=== PATIENT | male | born 1970 | race Caucasian/White ===

== ENCOUNTER 2025-02-02 14:55 | Outpatient (CLI) | payer OTHER, SELFPAY ==
--- NOTE | 2025-02-02 | ECG_ITS ---
Test Date: 2025-02-02 15:19:09 Measurements Intervals [place] Rate: 53 P: 54 ND: 186 QRS: 70 QRSD: 89 T: 55 QT: 419 QTc: 395 Interpretive Statements SINUS BRADYCARDIA VOLTAGE CRITERIA FOR LVH MINIMAL Q WAVES- INF/LAT LEADS ST ELEVATION IN ANTEROLAT/INF LEADS- PROBABLY EARLY REPOLARIZATION BASELINE ARTIFACT- AVL, AVF, V1-V3 BORDERLINE ECG No previous ECG available for comparison Electronically Signed On 02-02-2025 15:53:09 CDT by Elvis Diallo D.O.
--- OUTSIDE RECORDS SUMMARY | 2025-02-02 15:02 | XMS_ITS | Clinical Summary ---
Author Organization [facility] [place] [facility] [facility] Address [address] [place] [address] Care Team Providers Care Car Builder Name Role Phone Marissa Palomino Primary Care Provider +1- [phone] Allergies No known active allergies Medications No known medications Active Problems Problem Noted Date Diagnosed Date BMI 25.0-25.9,adult 11/18/2020 Assessment & Plan (11/18/2020 3:13 PM CDT): Weight/BMI is in healthy range. Continue healthy lifestyle to maintain. Frequent urination 11/18/2020 Assessment & Plan (11/18/2020 4:05 PM CDT): We reviewed poc urinalysis in office He was advised increased fluids, f/u in 1w if not improving and report to er in interim if unable to urinate Will send urine for culture Patient reminded that with this antibiotic that leg pain and inflammation may occur. They were reminded that in the event of these symptoms to stop taking the antibiotic and contact the office. Microscopic hematuria 11/18/2020 Assessment & Plan (11/18/2020 4:05 PM CDT): We reviewed poc urinalysis in office He was advised increased fluids, f/u in 1w if not improving and report to er in interim if unable to urinate Will send urine for culture Patient reminded that with this antibiotic that leg pain and inflammation may occur. They were reminded that in the event of these symptoms to stop taking the antibiotic and contact the office. Family history of colon cancer 11/18/2020 Assessment & Plan (11/18/2020 4:04 PM CDT): Will refer for colon cancer screening Pharyngitis 07/22/2020 Assessment & Plan (07/22/2020 4:07 PM NURSE PRN): Patient declines the advised covid 19 test, reports he is in quarantine at a minimum until next week per the health dept. He will report to us if symptoms not resolving over the next week, sooner if worsening. Immunizations Immunization Administration Dates Next Due Influenza, Trivalent, IM (MDV) 05/23/2018 Influenza, Unspecified 05/23/2020(Deferred: [place] ent Refused) Tdap 03/23/2016 Family History Medical History Relation Name Comments No Known Problems Father No Known Problems Mother Relation Name Status Comments Father Alive Mother Alive Social History Tobacco Use Types Packs/Day Years Used Date Smoking Tobacco: Never Smokeless Tobacco: Never Alcohol Use Standard Drinks/Week Comments Yes 0 (1 standard drink = 0.6 oz pur e alcohol) PHQ-2 Answer Date Recorded PHQ-2 Total Score (If total score is 3 or more points, staff should administer the PHQ-9) 0 11/18/2020 Sex and Gender Information Value Date Recorded Sex Assigned at Not on file Legal Sex Male 8:29 AM NURSE PRN Gender Identity Not on file Sexual Orientation Not on file Obstetrics History Last Filed Vital Signs Vital Sign Reading Time Taken Comments Blood Pressure 120/80 11/18/2020 3:12 PM CDT Pulse 76 11/18/2020 3:12 PM CDT Temperature 36.6 C (97.8 F) 11/18/2020 3:12 PM CDT Respiratory Rate - - Oxygen Saturation 98% 11/18/2020 3:12 PM CDT Inhaled Oxygen Concentration - - Weight 74.8 kg (165 lb) 11/18/2020 3:12 PM CDT Height 172.7 cm (5' 8) 11/18/2020 3:12 PM CDT Body Mass Index 25.09 11/18/2020 3:12 PM CDT Plan of Treatment Not on file Insurance [facility] [employer] Care Teams Car Builder Relationship Specialty Start Date End Date Marissa Palomino PA PCP - General Hardwood Floor Layer 11/18/20
--- OUTSIDE RECORDS SUMMARY | 2025-02-02 15:02 | XMS_ITS | Encounter Summary ---
Author Organization [facility] Care Team Providers Care Lining Closer Name Role Phone Dennis Paula MD Primary Care Provider Marissa Palomino Primary Care Provider +1- [phone] Encounter Details Date Type Department Care Team (Latest Contact Info) Description 10/19/2014 Orders Only [facility] ProviderDarrion MD [address] [place] [id number] Social History Tobacco Use Types Packs/Day Years Used Date Smoking Tobacco: Never Assessed Alcohol Use Standard Drinks/Week Comments Yes 0 (1 standard drink = 0.6 oz pur e alcohol) Sex and Gender Information Value Date Recorded Sex Assigned at Not on file Legal Sex Male 8:29 AM RISK ADJUSTMENT SPECIALIST Gender Identity Not on file Sexual Orientation Not on file documented as of this encounter Plan of Treatment Not on file documented as of this encounter Procedures Procedure Name Priority Date/Time Associated Diagnosis Comments COLONOSCOPY - SCAN 06/28/2018 12 :00 AM RISK ADJUSTMENT SPECIALIST documented in this encounter Results * COLONOSCOPY - SCAN (06/28/2018 12:00 AM RISK ADJUSTMENT SPECIALIST) Narrative 06/28/2018 12:00 AM RISK ADJUSTMENT SPECIALIST Ordered by an unspecified provider. Historical Provider Final Res ult documented in this encounter Visit Diagnoses Not on filedocumented in this encounter Care Teams Lining Closer Relationship Specialty Start Date End Date Dennis Paula MD PCP - General 07/07/10 07/21/20 Marissa Palomino PA PCP - General General Manager In Training 11/18/20 documented as of this encounter
--- OUTSIDE RECORDS SUMMARY | 2025-02-02 15:02 | XMS_ITS | Referral Summary ---
Author Organization [facility] [place] [address] [facility] Address [address] [place] [address] Care Team Providers Care Product Safety Technician Name Role Phone Marissa Palomino Primary Care Provider +1- [phone] Allergies No known active allergies Medications No [...] 07/22/2020 Assessment & Plan (07/22/2020 4:07 PM SERVICE PARTS DRIVER): Patient declines the advised covid 19 test, reports he is in quarantine at a minimum until next week per the health dept. He will report to us if symptoms not resolving over the next week, sooner if worsening. Immunizations Immunization Administration Dates Next Due Influenza, Trivalent, IM (MDV) 05/23/2018 Influenza, Unspecified 05/23/2020(Deferred: [place] ent Refused) Tdap 03/23/2016 Social History Tobacco Use Types Packs/Day Years [...] on file Legal Sex Male 8:29 AM SERVICE PARTS DRIVER Gender Identity Not on file Sexual Orientation Not on file Last Filed Vital Signs Vital Sign Reading [...] Plan of Treatment Not on file Insurance [facility] CHO[employer] PL[employer] Care Teams Product Safety Technician Relationship Specialty Start Date End Date Marissa Palomino PA PCP - General Advocacy Director 11/18/20
[2025-02-02 15:20] LABS: Basophils Percent Auto 0.3 % (0.2-1.2); Eosinophils Absolute Auto 0.1 K/mm3 (0-0.3); Hematocrit 41.2 % (42.0-52.0); Hemoglobin 13.9 g/dL (14.0-18.0); Immature Granulocyte Absolute 0.01 K/mm3 (0.00-0.031); Immature Granulocyte Percent A 0.1 % (0-0.5); Lymphocytes Absolute Auto 1.88 K/mm3 (0.9-3.2); Lymphocytes Percent Auto 27.4 % (18.3-44.2); Mean Corpuscular HGB Conc 33.7 g/dl (32-36); Mean Corpuscular Volume 85.8 fl (80-100); Mean Platelet Volume 10.3 fl (7.4-10.4); Monocytes Absolute Auto 0.6 K/mm3 (0.1-0.6); Monocytes Percent Auto 8.6 % (2.6-8.5); Neutrophils Absolute Auto 4.3 K/mm3 (1.3-6.7); Neutrophils Percent Auto 62.6 % (45.5-73.1); Platelet Count Result 177 k/mm3 (150-375); Red Cell Distribution Width 12.2 % (11.5-14.5); White Blood Count 6.9 K/mm3 (4.5-10.0)
[2025-02-02 15:31] LABS: Hemoglobin A1C 5.4 % (<5.7)
[2025-02-02 15:40] LABS: Alanine Aminotransferase 22 U/L (6-50); Albumin Level 4.5 g/dL (3.5-5.1); Alkaline Phosphatase 45 U/L (38-126); Anion Gap 7 mmol/L (4-12); Aspartate Amino Transferase 28 U/L (17-59); Bilirubin,Total 0.4 mg/dL (0.2-1.3); Blood Urea Nitrogen 27 mg/dL (9-20); Calcium 9.2 mg/dL (8.4-10.2); Carbon Dioxide 29 mmol/L (22-30); Chloride 103 mmol/L (98-107); Cholesterol 180 mg/dL (0-200); Estimated Glomerular Filt Rate > 60; Glucose 96 mg/dL (65-110); HDL Direct 54 mg/dL; Potassium 4.2 mmol/L (3.4-5.0); Sodium 139 mmol/L (137-145); Total Protein 7.2 g/dL (6.3-8.2); Triglycerides 193 mg/dL (<150)
[2025-02-02 15:51] LABS: LDL Cholesterol Direct 91 mg/dL
[2025-02-02 16:00] LABS: Free T4 Free Thyroxine 1.01 ng/dL (0.78-2.19); Vitamin D 25 Hydroxy 30.3 ng/mL
[2025-02-02 16:34] LABS: Hepatitis C Virus Antibody Negative (Negative)
== END 2025-02-02 14:56 | disposition home or self-care (01) ==
LOC: ANHLAB 15:00
PROVIDERS: Visit Provider Family Medicine
DX: Z00.00 Encounter for general adult medical examination without abnormal findings (principal); R00.2 Palpitations
CPT/HCPCS: 36415; 80053; 80061; 82306; 83036; 84439; 84443; 84480; 85025; 86803; 93005

== ENCOUNTER 2025-06-15 00:35 | Day surgery (SDC) | payer OTHER, SELFPAY ==
[2025-06-06 10:23] VITALS: BMI 24.4
[2025-06-15 06:55] VITALS: BP 147/94; PULSE 80; RESP 16; TEMP 36.7; O2SAT 99
[2025-06-15] MEDS: LACTATED RINGERS 1,000 ML 150 ML IV CONT (07:04)
--- NOTE | 2025-06-15 07:10 | WPDANESEPPF ---
Anes - Initial Pre Proc Eval Procedure: Operation Date: 06/15/25 08:00 Proposed Procedures p Screening Colonoscopy - Gui Lobato MD Date/Time: 06/15/25 07:10 Surgeon: Gui Lobato MD Pre Op Diagnosis: Screening Patient Data Age: 55 Gender: M Height: 1.75 m Weight: 74.8 kg Last Vital Signs Temp 98.0 F 06/15/25 06:55 Pulse 80 06/15/25 06:55 Resp 16 06/15/25 06:55 BP 147/94 H 06/15/25 06:55 Pulse Ox 99 06/15/25 06:55 O2 Del Method Room Air 06/15/25 06:55 Allergies Allergy/AdvReac Type Severity Reaction Status Date / Time No Known Allergies Allergy Mild Verified 06/15/25 06:54 Home Medications ?Medication ?Instructions ?Recorded ?Confirmed ?Type No Home Medications 06/15/25 06/15/25 History Patient hx anesthesia problems: none Family hx anesthesia problems: none Results Review: All pre-operative results and documents have been reviewed as part of the pre-operative evaluation. [facility] Social History Social History Alcohol intake: current Drinks per week: 4 Living arrangements: with family Spiritual care concerns: No Anes - Eval Final PreProcedure Day of Procedure 06/15/25 07:10 Patient weight: normal Lungs: normal air movement Airway: Mallampati scale class II Neurological: alert and oriented Last oral intake: >/= 8 hours ASA classification: I Emergent: no Anesthetic plan: proceed Anesthesia type and monitoring: general GIVS and standard monitoring Results Review: All pre-operative results and documents have been reviewed as part of the pre-operative evaluation. Healthy, active w crossfit, no cp or sob. Informed Consent: The patient's anesthetic plan and its attendant risks and benefits were discussed with the patient/family/POA. Questions were solicited and answers provided to the satisfaction of the patient/family/POA.
--- NOTE | 2025-06-15 07:47 | PM.IMHP ---
H&P: HPI History of Present Illness Date/Time: 06/15/25 07:47 Chief Complaint: Screening colonoscopy Narrative: This is the patient's 2nd screening colonoscopy. There are no GI symptoms and there is no family history of colorectal cancer. Review of Systems Review of Systems: All systems reviewed & are unremarkable except as noted in HPI and below [facility] Social History Social History Alcohol intake: current Drinks per week: 4 Living arrangements: with family Spiritual care concerns: No Meds Home Medications and Allergies Home Medications ?Medication ?Instructions ?Recorded ?Confirmed ?Type No Home Medications 06/15/25 06/15/25 History Allergies Allergy/AdvReac Type Severity Reaction Status Date / Time No Known Allergies Allergy Mild Verified 06/15/25 06:54 Vital Signs Vital Signs - 24 hr 06/15/25 06:55 Temperature 98.0 F Pulse Rate 80 Respiratory Rate 16 Blood Pressure 147/94 H Pulse Oximetry 99 Oxygen Delivery Room Air Exam Const: General: cooperative and healthy appearing Resp: Effort & Inspection: normal respiratory effort and able to speak in complete sentences Auscultation: clear to auscultation bilaterally Cardio: Rate: regular rate Rhythm: regular rhythm GI: Inspection: normal to inspection GI Palp: No No hepatosplenomegaly present Auscultation: normal bowel sounds Rectal Exam: deferred Skin: General skin exam: normal color Psych: Appearance: grossly normal Mental Status: mental status grossly normal Assessment and Plan Assessment and plan (1) Encounter for screening colonoscopy: Code(s): Z12.11 - Encounter for screening for malignant neoplasm of colon Status: Acute Assessment and Plan: The patient is deemed a good candidate for the procedure. Consent signed. Will proceed.
[2025-06-15 08:13] VITALS: BP 104/56; PULSE 71; RESP 17; O2SAT 97
[2025-06-15 08:23] VITALS: BP 111/72; PULSE 72; RESP 22; O2SAT 100
[2025-06-15 08:33] VITALS: BP 122/83; PULSE 63; RESP 18; O2SAT 100
== END 2025-06-15 08:47 | disposition home or self-care (01) ==
PROVIDERS: PCP Nurse Practitioner Family; Visit Provider Internal Medicine Gastroenterology
PROC: 0DJD8ZZ Inspection of Lower Intestinal Tract, Via Natural or Artificial Opening Endoscopic (ICD-10-PCS; CPT 45378; principal; 2025-06-15 08:00)
DX: Z12.11 Encounter for screening for malignant neoplasm of colon (principal)
CPT/HCPCS: 45378; J2003; J2704; J7120